=== PATIENT | female | born 1945 | race Caucasian/White ===

== ENCOUNTER 2019-10-09 11:29 | Outpatient (RCR) | payer MEDICARE, OTHER, SELFPAY ==
--- NOTE | 2019-10-09 12:22 | ONC FU_ITS ---
Dr. Zimmerman follow up note Patient: Chela Ortiz Unit #: [id number]: 1945 Dicatated By: Iggy Zimmerman M.D.Date of Visit:Oct 09, 2019 Onc Med Follow-up/Prog Note History of Present Illness: Mrs. Chela Ortiz, is a 73-year-old female who recently noticed mass in her right breast subsequently underwent mammogram which confirmed the mass and on 07/27/2019 she underwent right breast mass excision which shows invasive moderately differentiated ductal carcinoma, grade 2 with positive surgical margin in the superior medial area and perineural and intraneural invasion was seen. And two specimen were removed from right breast same site, one specimen showed 0.7 cm tumor and second one showed 0.9 cm tumor, ER 48% e.g. moderately positive and ME 83%, strongly positive. HER-2/marine negative Patient tolerated procedure well and now reexcision of positive superior-medial margin and sentinel lymph node biopsy is under consideration. Patient denies any history of nipple discharge patient denies any history of right axillary lymphadenopathy. Patient has history of breast cancer in her aunt at age 79 underwent mastectomy and required no further treatment. History of bilateral oophorectomy for ovarian cyst in 1990 and since then she was on Premarin supplement pill till the time of right breast lumpectomy. History of hysterectomy in 1985 for prolapsed uterus. Menarche at age 12-13 Patient is concern about radiation therapy as her had a similar side effect due to radiation therapy to the pelvis for prostrate cancer and one of her friend had issues with postlumpectomy radiation therapy with severe skin damage. So she is reluctant to consider radiation therapy but finally agreed to see radiation oncology for discussion.Patient has seen radiation oncology and decided not to proceed with radiation because of related side effect and toxicity. And underwent reexcision of positive surgical margins on 09/08/2019 and achieved clear surgical margins. Started on Arimidex vitamin D/calcium on on 09/01/2019 Came for follow-up, complaining of off and on hot flashes otherwise tolerating Arimidex well. No nausea or vomiting no diarrhea or constipation no skin rash, no fever or chills. Also complaining of epigastric discomfort, now being evaluated by Dr. eubanks, possible EGD is under consideration. Medications: Anastrozole 1 Tablet (of 1 mg) Oral daily, Aspirin 1 Tablet (of 81 mg) Oral daily, Ferrous Sulfate 1 Tablet (of 325 (65 fe) mg) Oral daily, Lantus 45 Units (of 100 Units/mL) Subcutaneous b.i.d., Losartan Potassium 1 Tablet (of 100 mg) Oral daily, Multivitamin Adult 1 Tablet Oral daily, Rosuvastatin Calcium (20 mg) Tablet Oral Take as Directed, Verapamil HCl 1 Tablet (of 120 mg) Oral daily, Vitamin D 1 Tablet Oral daily Allergies: Codeine Phosphate, Midazolam, and Morphine Sulfate. Review of Systems: Constitutional - Appetite is poor and weight is stable. No fever, chills, or night sweats. Positive for hot flashes. Energy level is fair, ENMT - No sinus congestion/drainage. No mouth sores. No sore throat or difficulty swallowing, Hematologic/Lymphatic - Positive for easy bruising, Respiratory - No shortness of breath. No cough. No pleuritic pain or hemoptysis, Cardiovascular - No angina pain. No palpitations, Gastrointestinal - Positive for nausea, no vomiting. Positive for heartburn and acid reflux. Positive for diarrhea, no constipation. No blood in the stool or black stools, Genitourinary (F) - No dysuria or hematuria. No urinary frequency. No urgency or incontinence, Musculoskeletal - Positive for joint pain, Neurologic - No headache or dizziness. No numbness/paresthesias or other focal neurologic symptoms, Psychiatric - No anxiety or depression. No insomnia. Vital Signs: Performed on Oct 09, 2019 11:54 Height - 65.00 in Weight - 193.0 lbs (LOW) BSA - 1.95 sq.m BMI - 32.12 (HIGH) Temperature - 97.5 F (LOW) Pulse - 65 /min Respiration - 18 /min BP - 153/61 mm(hg) (HIGH) O2 Sat - 98 % Pain - 0 Performance Status: 0 - Fully active, able to carry on all predisease activities without restrictions. (ECOG) Physical Examination: Cardiovascular - Regular rate and rhythm of heart, Chest - Chest is symmetric without chest wall deformities, Extremities - no edema. Lab/Imaging: Test performed on Sep 01, 2019 09:50 Sodium 135 mmol/L Potassium 4.4 mmol/L Chloride 98 mmol/L CO2 27 mmol/L Anion Gap 14.4 BUN 9 mg/dL Creatinine 0.9 mg/dL Cr Clearance (Est) 75.11 mL/min Glucose 161 mg/dl Calcium 9.5 mg/dL Protein, Total 7.5 g/dL Albumin 4.5 g/dL Globulin 3.0 gm/dL Bilirubin, Total 0.2 mg/dL ALT (SGPT) 13 U/L AST (SGOT) 12 U/L Alkaline Phosphatase 87 U/L WBC 12.5 10 3/uL RBC 4.38 10 6/uL HGB 13.2 g/dL HCT 41.9 % MCV 95.7 fl MCH 30.1 pg MCHC 31.5 g/dl RDW 11.9 % Platelet Count 354 10 3/cmm MPV 9.5 fl Neutrophils 10.0 10 3/uL Lymphocytes 1.4 10 3/uL Monocytes 0.9 10 3/uL Eosinophils 0.1 10 3/uL Basophils 0.1 10 3/uL Neutrophil % 80.4 % Lymphocyte % 11.0 % Monocyte % 7.2 % Eosinophil % 0.6 % Basophils % 0.4 % Impression: Moderately differentiated invasive ductal carcinoma involving the right breast status post excisional biopsy done on 07/27/2019 Final pathology report showed specimens a from right breast showed invasive moderately differentiated ductal carcinoma grade 2, tumor is present in the superior medial margin and specimen B showed invasive moderately differentiated ductal carcinoma tumor involves superior Margin and perineural and intrarenal invasion is seen both specimen a and B were removed from same site in the right breast Underwent reexcision of involved margins on 09/08/2019 and achieved clear surgical margins ER 48%, moderately positive ME 83%, strongly positive HER-2/marine negative Oncotype DX score is 4 e.g. low, risk of distant recurrence at 9 years with Aromasin inhibitor or tamoxifen alone is 3% in node-negative patient and no benefit from chemotherapy Started on Arimidex/vitamin D/calcium for 5 years on 09/01/2019 Patient was referred for postlumpectomy radiation therapy but patient declined against medical advise Status post oophorectomy for ovarian cyst done in 1990, was on Premarin supplement since then till 07/27/2019 Status post hysterectomy for prolapsed uterus in 1985 Plan: Discussed with patient regarding her concerns about hot flashes and she was advised that time it should improve and also suggested to increase physical activities including daily walk and weight loss program. Patient said she quit taking sweets. In the meantime we'll continue with Arimidex 1 mg by mouth daily and she was also advised to try Arimidex in the morning instead of in the evening, sometime timing of hormonal therapy intake can improve hot flashes, although reasons unknown. Patient was also advised to consider postlumpectomy radiation therapy which is standard of care but patient declined. Return to clinic in 6 months with CBC CMP Signed By: Iggy Zimmerman M.D. <<Signature on File>>
== END 2019-10-30 23:59 | disposition home or self-care (01) ==
LOC: ONCMED 11:29
PROVIDERS: Family Provider Family Medicine; PCP Family Medicine; Visit Provider Internal Medicine Hematology & Oncology
DX: C50.211 Malignant neoplasm of upper-inner quadrant of right female breast (principal); Z17.0 Estrogen receptor positive status [ER+]; Z79.811 Long term (current) use of aromatase inhibitors; Z79.82 Long term (current) use of aspirin; Z98.890 Other specified postprocedural states
CPT/HCPCS: 99214

== ENCOUNTER → 2019-10-20 09:51 | Outpatient (BNVA) | payer MEDICARE, OTHER, SELFPAY | PROVIDERS: Family Provider Family Medicine; PCP Family Medicine; Visit Provider Family Medicine | DX: I15.0 Renovascular hypertension (principal); D50.9 Iron deficiency anemia, unspecified; E78.2 Mixed hyperlipidemia; E11.9 Type 2 diabetes mellitus without complications; Z79.4 Long term (current) use of insulin | CPT/HCPCS: 80053; 80061; 83036; 83540; 83550; 85025 ==

== ENCOUNTER 2019-11-11 06:36 | Day surgery (SDC) | payer MEDICARE, OTHER, SELFPAY ==
[2019-11-10 13:02] VITALS: BMI 32.1
[2019-11-11 06:48] VITALS: BP 197/76; PULSE 85; RESP 18; TEMP 36.2; O2SAT 98
[2019-11-11 07:00] LABS: Glucose Point of Care 162 mg/dL (70-110)
--- NOTE | 2019-11-11 07:23 | ANES.PREANE2 ---
Pre-Anesthetic Assessment Pre-Anesthetic Assessment: Height/Weight: Height 1.65 m Weight 87.543 kg Temp Pulse Resp BP Pulse Ox 97.2 F L 85 18 197/76 98 11/11/19 06:48 11/11/19 06:48 11/11/19 06:48 11/11/19 06:48 11/11/19 06:48 Preop Diagnosis: Gastric polyps Proposed Procedure: Operation Date: 11/11/19 07:45 Proposed Procedures p EGD(Not Applicable) - Jeff Bradley MD Familial anesthetic complications: denies patient states she had trouble breathin in recovery with her last surgery Was Beta Demario taken within 24 hours: N/A Last intake: Intake Last Liquid Date 11/10/19 Last Liquid Time 20:30 Social: Social History: No alcohol and No tobacco Exam: Pre-Anes Outpt Exam: alert, oriented x 3 and clear to auscultation bilaterally Airway: Submandibular: WNL Cervical ROM: WNL MP: 2 Dentition: Full (lower denture) and Other History/ROS: No significant history except as noted Pulmonary: Pulmonary: None reported CV/HEM: CV/HEM: Afib (pt states possible a-fibb ), Arrythmia and HTN : : None reported Hepatic: Hepatic: None reported GI: GI: GERD (controlled with meds ) Metabolic: Metabolic: DM (insulin dependent) Musc/skel: Musc/skel: Lower Back Pain and OA/DJD Neuropsych: Neuropsych: None reported Anesthetic Plan: ASA status: 3 Anesthesia: Anesthesia Evaluation and MAC Risk of > 500 ml blood loss (7ml/kg in children): No PFSH Anesthesia PFSH: Medical History (Updated 11/03/19 @ 09:50 by Goldie Rod) Aortic valve stenosis Arrhythmia Arrhythmia Diabetes Essential (primary) hypertension GERD (gastroesophageal reflux disease) GERD (gastroesophageal reflux disease) Hematoma of right breast History of gastric polyp Hyperlipidemia Hyperlipidemia Hypertension Infiltrating ductal carcinoma Breast Right Infiltrating ductal carcinoma of breast Iron deficiency anemia Post menopausal syndrome Type 2 diabetes mellitus, with long-term current use of insulin Surgical History (Updated 11/03/19 @ 09:50 by Goldie Rod) History of appendectomy History of appendectomy History of breast biopsy History of carotid angioplasty History of cholecystectomy History of colonoscopy (~2017) History of esophagogastroduodenoscopy (EGD) (~2018) History of gastric polyp Removed History of heart surgery Carotid Artery Surgery Left History of hysterectomy History of hysterectomy History of laparoscopic cholecystectomy History of oophorectomy Bilateral History of right breast biopsy History of tonsillectomy History of tonsillectomy Status post trigger finger release Family History (System 11/03/19 @ 09:50 by Goldie Rod) Other Cancer History of gastric polyp Denies family history of Anesthesia complication Bleeding disorder Social History (System 11/03/19 @ 09:50 by Goldie Rod) Smoking and tobacco status: never smoked Quit status (tobacco): has quit using tobacco Second hand smoke exposure: No Alcohol intake: never Desire information about alcohol rehabilitation?: No Desire information about substance/drug rehabilitation?: No Adopted: No Caregiver/support person: Yes Lives independently: No Household members: spouse Housing: House Marital status: / Highest education level completed: High School Graduate service: No Current occupational status: retired Current occupational exposures/hazards: No Pets and animals: No History of recent travel: No Leisure activites: exercise Sexually active: No Current gender identity: Female Kristan/Scientologist: [employer] Special kristan needs: No Agree to transfusion: No Financial difficulty paying for basics: Not Very Hard Data Anesthesia Other Labs: Laboratory Results - last 48 hr 11/11/19 06:57 POC Glucose 162 Cardiac Studies: No Data to Display
--- NOTE | 2019-11-11 07:41 | PM.HPUD ---
H&P update H&P Update: DATE OF SURGERY/PROCEDURE: 11/11/19 DATE H&P PERFORMED: 10/29/19 H&P UPDATE INFORMATION: H&P completed within last 30 days and No changes to prior documentation PREOP DIAGNOSIS: Gastric polyps PRIMARY INDICATION FOR PROCEDURE: The same PLANNED PROCEDURE: Operation Date: 11/11/19 07:45 Proposed Procedures p EGD(Not Applicable) - Jeff Bradley MD Full H&P Perinent History: Medical/Surgical History: Medical History (Updated 11/03/19 @ 09:50 by Goldie Rod) Aortic valve stenosis (Acute) Arrhythmia (Acute) Arrhythmia (Acute) Diabetes (Acute) Essential (primary) hypertension (Acute) GERD (gastroesophageal reflux disease) (Acute) GERD (gastroesophageal reflux disease) (Acute) Hematoma of right breast (Acute) History of gastric polyp (Acute) Hyperlipidemia (Acute) Hyperlipidemia (Chronic) Hypertension (Acute) Infiltrating ductal carcinoma (Acute) Breast Right Infiltrating ductal carcinoma of breast (Chronic) Iron deficiency anemia (Acute) Post menopausal syndrome (Acute) Type 2 diabetes mellitus, with long-term current use of insulin (Acute) Family History: Family History (Updated 10/30/19 @ 17:06 by Jeff Bradley MD) Other Cancer History of gastric polyp Denies family history of Anesthesia complication Bleeding disorder Social History: Social History Smoking and tobacco status: never smoked Quit status (tobacco): has quit using tobacco Second hand smoke exposure: No Alcohol intake: never Desire information about alcohol rehabilitation?: No Desire information about substance/drug rehabilitation?: No Adopted: No Caregiver/support person: Yes Lives independently: No Household members: spouse Housing: House Marital status: / Highest education level completed: High School Graduate service: No Current occupational status: retired Current occupational exposures/hazards: No Pets and animals: No History of recent travel: No Leisure activites: exercise Sexually active: No Current gender identity: Female Kristan/Restorationism: [employer] Special kristan needs: No Agree to transfusion: No Financial difficulty paying for basics: Not Very Hard
[2019-11-11 08:11] VITALS: BP 122/86; PULSE 69; RESP 16; TEMP 36.6; O2SAT 99
[2019-11-11 08:21] VITALS: BP 138/65; PULSE 65; RESP 16; O2SAT 97
--- NOTE | 2019-11-11 08:25 | ANE.PACU2 ---
 Inpatient post-anesthesia follow up: Airway intact: Yes Vital signs: Temperature 97.8 F Pulse Rate 65 Respiratory Rate 16 Blood Pressure 138/65 Pulse Oximetry 97 Oxygen Delivery Me thod Nasal Cannula Oxygen Flow Rate 3 Fraction of Inspir ed Oxygen Hydration adequate: Yes Nausea and vomiting: No Pain level: 2
[2019-11-11 08:32] VITALS: BP 156/74; PULSE 67; RESP 18; O2SAT 96
== END 2019-11-11 08:40 | disposition home or self-care (01) ==
PROVIDERS: Family Provider Family Medicine; PCP Family Medicine; Visit Provider Surgery
PROC: 0DJ08ZZ Inspection of Upper Intestinal Tract, Via Natural or Artificial Opening Endoscopic (ICD-10-PCS; CPT 43235; principal; 2019-11-11 07:45)
DX: Z87.19 Personal history of other diseases of the digestive system (principal); K31.7 Polyp of stomach and duodenum; I85.00 Esophageal varices without bleeding; K29.70 Gastritis, unspecified, without bleeding; N64.89 Other specified disorders of breast; I48.91 Unspecified atrial fibrillation; I10 Essential (primary) hypertension; E11.9 Type 2 diabetes mellitus without complications; K21.9 Gastro-esophageal reflux disease without esophagitis; M19.90 Unspecified osteoarthritis, unspecified site; E78.5 Hyperlipidemia, unspecified; Z90.13 Acquired absence of bilateral breasts and nipples; Z85.3 Personal history of malignant neoplasm of breast; Z79.82 Long term (current) use of aspirin; Z79.4 Long term (current) use of insulin; Z87.891 Personal history of nicotine dependence
CPT/HCPCS: 12345; 36416; 43251; 82962; 88305; 88309; J2704; J7030

== ENCOUNTER 2020-02-18 08:19 | Outpatient (CLI) | payer MEDICARE, OTHER, SELFPAY ==
--- NOTE | 2020-02-18 | MR_ITS ---
WS: [id number] MRI LEFT SHOULDER NONCONTRAST TECHNIQUE: Sagittal T2, coronal T1, T2 and proton density imaging. Axial gradient PDE imaging. CLINICAL INFORMATION: ROTATOR CUFF SYNDROME, LEFT COMPARISON: None. FINDINGS: Mild degenerative arthritis AC joint. Mild downsloping acromion. Small amount of subacromial/subdelto id fluid. Chronic thinning of the distal supraspinatus with a small insertional tear. Small insertion al tear measures approximately 6 mm. Infraspinatus is intact. Normal teres minor. Tendinopathy with s mall intrasubstance tear involving the subscapularis tendon distally Medial subluxation of the biceps tendon in the bicipital groove. Biceps tendon is atrophic. Intra-art icular portion of the biceps tendon not well visualized likely chronically torn. Degenerative fraying of the glenoid labrum which appears grossly intact. Small amount of fluid in the subcoracoid recess. MR/MR shoulder LT wo con* [id number] IMPRESSION: 1. Moderate degenerative arthritis AC joint with mild edema. 2. Small insertional tear involving the supraspinatus distally with a small 6 mm full-thickness gap at the insertion. 3. Normal infraspinatus and teres minor. 4. Small amount of tendinopathy with intrasubstance tear involving the distal subscapularis. Medial subluxation of the biceps tendon within the bicipital samantha ove with chronic atrophy. 5. Intra-articular portion of the biceps tendon not well visualized and appear s chronically torn with atrophy.
== END 2020-02-18 08:20 | disposition home or self-care (01) ==
LOC: RADSHAW 08:20
PROVIDERS: PCP Family Medicine; Visit Provider Family Medicine
DX: M75.102 Unspecified rotator cuff tear or rupture of left shoulder, not specified as traumatic (principal); M19.012 Primary osteoarthritis, left shoulder
CPT/HCPCS: 73221

== ENCOUNTER 2020-03-04 10:34 | Outpatient (RCR) | payer MEDICARE, OTHER, SELFPAY | END 2020-03-29 23:59 | disposition home or self-care (01) | LOC: SPT 10:34 | PROVIDERS: PCP Family Medicine; Referring Provider Family Medicine; Visit Provider Family Medicine | DX: M75.102 Unspecified rotator cuff tear or rupture of left shoulder, not specified as traumatic (principal) | CPT/HCPCS: 97110; 97161; 97530 ==

== ENCOUNTER 2020-03-09 09:26 | Outpatient (CLI) | payer MEDICARE, OTHER, SELFPAY ==
--- NOTE | 2020-03-09 09:30 | USCV_ITS ---
Chela Ortiz Age: 74 Gender: F : 1945 Exam Date: 03/09/2020 09:56 Ordering Phys: Cory Beasley MD ([email or web address]) Technologist: Jolie Schulte Exam Location: [facility] – [place] Indication: HISTORY: Lower extremity pain. PROCEDURES: Bilateral duplex Venous Insufficiency study of the Deep and Superficial systems was carried out according to normal protocol with the patient in supine positon for deep system and dependent position for the superficial system. FINDINGS: There is no evidence of bilateral deep vein thrombosis. No evidence of superficial thrombosis in the bilateral saphenous system. No evidence of reflux was noted in the bilateral deep venous system. No venous reflux noted in the RIGHT greater saphenous vein. No venous reflux noted in the bilateral small saphenous vein. Venous reflux is demonstrated in the LEFT greater saphenous vein with a spectral Doppler display of greater than 500 milliseconds at the BELOW THE KNEE level. CONCLUSIONS 1. No evidence of DVT in the above-mentioned identifiable veins. 2. Significant venous reflux of greater than 500 ms(2900 msec) was noted at the left below-knee greater saphenous vein segment. The vein at this segment was measuring 0.22 cm in diameter at a depth of 1.15 cm. 3. No other significant reflux were noted in the superficial or deep veins, bilaterally. 4. The venous dimensions, depth from the surface and the reflux time are as mentioned above Dr Ivonne Padilla MD [facility] (Electronically Signed) Final Date: 09 March 2020 19:22 S
== END 2020-03-09 09:27 | disposition home or self-care (01) ==
LOC: RAD 09:30
PROVIDERS: PCP Family Medicine; Visit Provider Internal Medicine Cardiovascular Disease
DX: M79.605 Pain in left leg (principal); M79.604 Pain in right leg
CPT/HCPCS: 93970

== ENCOUNTER 2020-03-21 10:40 | Outpatient (CLI) | payer MEDICARE, OTHER, SELFPAY ==
[2020-03-21 11:07] LABS: Basophils # 0.1 10^3/uL (0.0-0.1); Basophils % 0.6 %; Eosinophils # 0.1 10^3/uL (0.0-0.8); Hematocrit 43.4 % (37.0-47.0); Lymphocytes # 1.6 10^3/uL (0.8-4.8); Mean Corpuscular HGB Conc 32.3 g/dL (30.0-36.0); Mean Corpuscular Hemoglobin 30.5 pg (28.0-34.0); Mean Corpuscular Volume 94.6 fL (81-99); Mean Platelet Volume 9.3 fL (7.4-10.4); Monocytes # 0.8 10^3/uL (0.2-0.9); Monocytes % 7.2 %; Neutrophils # 8.2 10^3/uL (1.8-7.7); Neutrophils % 75.7 %; Nucleated Red Blood Cells % 0 %; Platelet Count 341 10^3/cmm (130-400); Red Blood Count 4.59 10^6/uL (4.1-5.3); Red Cell Distribution Width 12.1 % (12.1-15.1); White Blood Count 10.9 10^3/uL (4.0-10.0)
[2020-03-21 11:15] LABS: Alanine Aminotransferase 13 U/L (0-33); Albumin Level 4.4 g/dL (3.5-5.2); Alkaline Phosphatase 80 IU/L (35-105); Anion Gap 18.3 (5-19); Aspartate Amino Transferase 15 U/L (0-32); Blood Urea Nitrogen 12 mg/dL (8-23); Calcium 9.9 mg/dL (8.5-10.5); Carbon Dioxide 25 mmol/L (22-29); Chloride 99 mmol/L (98-107); Globulin 2.3 g/dL (1.3-4.6); Glucose 188 mg/dL (65-115); Osmolality Calculated 287 mOsm/kg (285-295); Potassium 4.3 mmol/L (3.5-5.1); Sodium 138 mmol/L (136-145); Total Bilirubin 0.2 mg/dL (0.15-1.2); Total Protein 6.7 g/dL (6.6-8.7)
== END 2020-03-21 10:41 | disposition home or self-care (01) ==
LOC: ONCMED 10:44
PROVIDERS: PCP Family Medicine; Visit Provider Internal Medicine Hematology & Oncology
DX: C50.211 Malignant neoplasm of upper-inner quadrant of right female breast (principal); Z17.0 Estrogen receptor positive status [ER+]
CPT/HCPCS: 80053; 85025